=== PATIENT | female | born 1950 | race Caucasian/White ===

== ENCOUNTER → 2016-11-14 | Outpatient (CLI) | payer MEDICARE ==
--- NOTE | 2016-11-15 10:55 | ECHOF ---
Referral Reason:R01.1 undiagnosed cardiac murmur MEASUREMENTS -------- HEIGHT: 165.1 cm WEIGHT: 104.3 kg BP: 193/91 RVIDd: 2.5 cm (< 3.3) IVSd: 1.2 cm (0.6 - 1.1) LVIDd: 4.8 cm (3.9 - 5.3) LVPWd: 1.2 cm (0.6 - 1.1) IVSs: 1.7 cm LVIDs: 3.1 cm LVPWs: 1.9 cm LA Diam: 2.7 cm (2.7 - 3.8) LAESV Index (A-L): 27.01 ml/m Ao Diam: 3.1 cm (2.0 - 3.7) AV Cusp: 1.7 cm (1.5 - 2.6) LA Diam: 3.0 cm (2.7 - 3.8) MV EXCURSION: 15.271 mm (> 18.000) MV EF SLOPE: 90 mm/s (70 - 150) EPSS: 0.5 cm MV E Darrel: 0.80 m/s MV DecT: 222 ms MV A Darrel: 0.90 m/s MV E/A Ratio: 0.89 AV maxP.38 mmHg AV meanP.59 mmHg RAP: 5.00 mmHg RVSP: 28.38 mmHg FINDINGS -------- Sinus rhythm. This was a technically good study. Left ventricular wall thickness is normal. Overall left ventricular systolic function is normal with, an EF between 55 - 60 %. The right ventricle is normal in size. Normal LA size by volume 22+/-6 ml/m2. The right atrium is normal in size. Aortic valve is trileaflet and is mildly thickened. There is mild aortic stenosis present. Peak/mean gradient across the Aortic Valve is 28.38mmHg / 15.59mmHg. Mild mitral annular calcification present. Mild mitral regurgitation is present. Mild tricuspid regurgitation present. Right ventricular systolic pressure is normal at < 35 mmHg. Trace/mild (physiologic) pulmonic regurgitation. The aortic root size is normal. Normal inferior vena cava with normal inspiratory collapse consistent with estimated right atrial pressure of 5 mmHg. Echo free space may represent effusion or a pericardial fat pad. CONCLUSIONS -------- 1. Sinus rhythm. 2. Peak/mean gradient across the Aortic Valve is 28.38mmHg / 15.59mmHg. 3. Mild mitral annular calcification present. 4. Mild mitral regurgitation is present. 5. Mild tricuspid regurgitation present. 6. Right ventricular systolic pressure is normal at < 35 mmHg. 7. Trace/mild (physiologic) pulmonic regurgitation. 8. The aortic root size is normal. 9. Normal inferior vena cava with normal inspiratory collapse consistent with estimated right atrial pressure of 5 mmHg. 10. Echo free space may represent effusion or a pericardial fat pad. 11. This was a technically good study. 12. Left ventricular wall thickness is normal. 13. Overall left ventricular systolic function is normal with, an EF between 55 - 60 %. 14. The right ventricle is normal in size. 15. Normal LA size by volume 22+/-6 ml/m2. 16. The right atrium is normal in size. 17. Aortic valve is trileaflet and is mildly thickened. 18. There is mild aortic stenosis present. PLATFORM ARCHITECT: Ryann Hope RDCS
== END | disposition home or self-care (01) ==
LOC: RADECHMAIN 13:36
PROVIDERS: ATTEND Family Medicine
DX: I34.0 Nonrheumatic mitral (valve) insufficiency (principal); I07.1 Rheumatic tricuspid insufficiency; I35.0 Nonrheumatic aortic (valve) stenosis
CPT/HCPCS: 93306

== ENCOUNTER → 2017-09-27 | Outpatient (CLI) | payer MEDICARE ==
--- NOTE | 2017-10-01 09:00 | MM ---
Reason for exam: screening (asymptomatic). Last mammogram was performed 1 year and 4 months ago. History: Patient is postmenopausal and is nulliparous. Took estrogen for 5 years. Physical Findings: A clinical breast exam by your physician is recommended on an annual basis and results should be correlated with mammographic findings. MG Screening Mammo w CAD Bilateral CC and MLO view(s) were taken. Prior study comparison: June 11, 2016, bilateral MG screening mammo w CAD. June 09, 2015, bilateral MG screening mammo w CAD. There are scattered fibroglandular densities. No significant changes when compared with prior studies. ASSESSMENT: Negative, BI-RAD 1 RECOMMENDATION: Routine screening mammogram of both breasts in 1 year.
== END | disposition home or self-care (01) ==
LOC: RADMAMWWP 10:59
PROVIDERS: ATTEND Family Medicine
DX: Z12.31 Encounter for screening mammogram for malignant neoplasm of breast (principal)
CPT/HCPCS: 77067

== ENCOUNTER → 2018-10-07 | Outpatient (CLI) | payer MEDICARE ==
--- NOTE | 2018-10-11 09:49 | MM ---
Reason for exam: screening (asymptomatic). Last mammogram was performed 1 year ago. History: Patient is postmenopausal and is nulliparous. Took estrogen for 5 years. MG Screening Mammo w CAD Bilateral CC and MLO view(s) were taken. Prior study comparison: September 27, 2017, bilateral MG screening mammo w CAD. June 11, 2016, bilateral MG screening mammo w CAD. There are scattered fibroglandular densities. No discrete abnormality. No significant changes when compared with prior studies. ASSESSMENT: Negative, BI-RAD 1 RECOMMENDATION: Routine screening mammogram of both breasts in 1 year.
== END | disposition home or self-care (01) ==
LOC: RADMAMWWP 11:47
PROVIDERS: ATTEND Family Medicine
DX: Z12.31 Encounter for screening mammogram for malignant neoplasm of breast (principal)
CPT/HCPCS: 77067

== ENCOUNTER → 2019-11-09 | Outpatient (CLI) | payer MEDICARE ==
--- NOTE | 2019-11-10 10:26 | BD ---
EXAMINATION TYPE: Axial Bone Density DATE OF EXAM: 11/09/2019 COMPARISON: 2013 CLINICAL HISTORY: Z 78.0 Height: 5 FT 4 1/2 IN Weight: 224 FRAX RISK QUESTIONS: Alcohol (3 or more units per day): NO Family History (Parent hip fracture): NO Glucocorticoids (More than 3mos): NO (Ex: prednisone, prednisolone, methylprednisolone, dexamethasone, and hydrocortisone). History of Fracture in Adulthood: NO Secondary Osteoporosis: 1. Type 1 Diabetes: NO 2. Hyperthyroidism: NO 3. Menopause before 45: NO 4. Malnutrition: NO 5. Chronic liver disease: NO Rheumatoid Arthritis: NO Current Tobacco Use: YES RISK FACTORS HISTORY OF: Active: NO Postmenopausal woman: AGE 50 MEDICATIONS: Additional Medications: METFORMIN, , LISINOPRIL, OMEPRAZOLE, METOPROLOL, ECOTRIN, ATORVASTATIN, COQ10 Additional History: EXAM MEASUREMENTS: Bone mineral densitometry was performed using the [place] Thin brick System. Bone mineral density as measured about the Lumbar spine is: ----- L1-L4(G/cm2): 1.323 T Score Values are as follows: ----- L2: 0.8 ----- L3: 1.4 ----- L4: 2.4 ----- L1-L4: 1.2 Bone mineral density has: INCREASED 2.9 % since study of: 2013 Bone mineral density about the R hip (g/cm2): 0.988 Bone mineral density about the L hip (g/cm2): 0.893 T Score values are as follows: -----R Neck: -0.4 -----L Neck: -1.0 -----R Total: -0.3 -----L Total: -0.6 Bone mineral density has: DECREASED -1.4 % since study of: 2013 IMPRESSION: Normal (Values between +1 and -1 indicate normal bone mass). Values approach osteopenia. Consider rep eating this study in 5 years or sooner if there is some new clinical indication. NOTE: T-SCORE=SD OF THE YOUNG ADULT MEAN.
--- NOTE | 2019-11-10 11:33 | MM ---
Reason for exam: screening (asymptomatic). Last mammogram was performed 1 year and 1 month ago. History: Patient is postmenopausal and is nulliparous. Took estrogen for 5 years. Physical Findings: A clinical breast exam by your physician is recommended on an annual basis and results should be correlated with mammographic findings. MG Screening Mammo w CAD Bilateral CC and MLO view(s) were taken. Prior study comparison: October 07, 2018, bilateral MG screening mammo w CAD. September 27, 2017, bilateral MG screening mammo w CAD. There are scattered fibroglandular densities. No significant changes when compared with prior studies. ASSESSMENT: Negative, BI-RAD 1 RECOMMENDATION: Routine screening mammogram of both breasts in 1 year.
== END | disposition home or self-care (01) ==
LOC: RADMAMWWP 15:21
PROVIDERS: ATTEND Family Medicine
DX: Z12.31 Encounter for screening mammogram for malignant neoplasm of breast (principal); Z78.0 Asymptomatic menopausal state
CPT/HCPCS: 77067; 77080

== ENCOUNTER → 2020-05-31 | Outpatient (CLI) | payer MEDICARE ==
--- NOTE | 2020-05-31 17:41 | ECHOF ---
Referral Reason:I35.0 Nonrheumatic aortic (valve) stenosis MEASUREMENTS -------- HEIGHT: 165.1 cm WEIGHT: 99.8 kg BP: IVSd: 1.3 cm (0.6 - 1.1) LVIDd: 4.6 cm (3.9 - 5.3) LVPWd: 1.4 cm (0.6 - 1.1) EDV(Teich): 95 ml IVSs: 2.1 cm LVIDs: 2.8 cm LVPWs: 1.9 cm %IVS Thck: 62 % ESV(Teich): 30 ml EF(Teich): 68 % %FS: 38 % SV(Teich): 65 ml LVOT Diam: 1.4 cm RVIDd: 2.3 cm (< 3.3) IVC: 11.57 mm LALs A4C: 5.3 cm LAAs A4C: 18.4 cm LAESV A-L A4C: 55 ml LAESV MOD A4C: 52 ml LALs A2C: 5.6 cm LAAs A2C: 21.6 cm LAESV A-L A2C: 71 ml LAESV MOD A2C: 65 ml LAESV(A-L): 64 ml LAESV Index (A-L): 31.13 ml/m Ao Diam: 2.6 cm (2.0 - 3.7) LA Diam: 4.3 cm (2.7 - 3.8) AV Cusp: 1.3 cm (1.5 - 2.6) EPSS: 0.7 cm MV E Darrel: 1.12 m/s MV DecT: 175 ms MV Dec Sterling: 6.4 m/s MV A Darrel: 1.13 m/s MV E/A Ratio: 1.00 MV PHT: 51 ms MR Vmax: 5.43 m/s MR maxP.02 mmHg LVOT Vmax: 1.26 m/s LVOT maxP.33 mmHg AV Vmax: 3.04 m/s AV maxP.96 mmHg DESTINY Vmax, Pt: 0.7 cm AV Vmax: 3.25 m/s AV Vmean: 2.32 m/s AV maxP.29 mmHg AV meanP.30 mmHg AV Env.Ti: 318 ms AV VTI: 73.9 cm DESTINY Vmax, Pt: 0.6 cm TR Vmax: 1.27 m/s TR maxP.42 mmHg RAP: 5.00 mmHg RVSP: 11.42 mmHg MV EF SLOPE: 87.77 mm/s (70 - 150) MV EXCURSION: 13.19 mm (> 18.000) FINDINGS -------- This was a technically good study. The left ventricular size is normal. There is moderate concentric left ventricular hypertrophy. O verall left ventricular systolic function is normal with, an EF between 60 - 65 %. Normal LAP Grade 1 Diastolic Dysfunction. The right ventricle is normal in size. LA is midly dilated 29-33ml/m2. The right atrial size is normal. Interatrial and interventricular septum intact. Aortic valve is trileaflet and is moderately thickened. There is moderate aortic stenosis present. Peak/mean gradient across the Aortic Valve is 42.29mmHg / 23.30mmHg. The mitral valve is normal. The mitral valve leaflets are mildly thickened. Xhez-dr-ppgaisgz mitr al regurgitation is present. Mild tricuspid regurgitation present. Right ventricular systolic pressure is normal at < 35 mmHg. There is no evidence of pulmonary hypertension. There is no pulmonic regurgitation present. The aortic root size is normal. Normal inferior vena cava with normal inspiratory collapse consistent with estimated right atrial pre ssure of 5 mmHg. There is no pericardial effusion. CONCLUSIONS -------- 1. The left ventricular size is normal. 2. There is moderate concentric left ventricular hypertrophy. 3. Overall left ventricular systolic function is normal with, an EF between 60 - 65 %. 4. Normal LAP Grade 1 Diastolic Dysfunction. 5. LA is midly dilated 29-33ml/m2. 6. Aortic valve is trileaflet and is moderately thickened. 7. There is moderate aortic stenosis present. 8. Peak/mean gradient across the Aortic Valve is 42.29mmHg / 23.30mmHg. 9. The mitral valve leaflets are mildly thickened. 10. Lcwk-pl-fjkfldfv mitral regurgitation is present. 11. Right ventricular systolic pressure is normal at < 35 mmHg. 12. There is no pericardial effusion. METAL ROOM DENTAL TECHNICIAN: Tanja Mcnally [facility]
== END | disposition home or self-care (01) ==
LOC: RADECHMAIN 14:50
PROVIDERS: ATTEND Family Medicine
DX: I35.0 Nonrheumatic aortic (valve) stenosis (principal); I34.0 Nonrheumatic mitral (valve) insufficiency; I51.7 Cardiomegaly; I51.89 Other ill-defined heart diseases; I25.2 Old myocardial infarction
CPT/HCPCS: 93306

== ENCOUNTER → 2020-07-22 | Outpatient (CLI) | payer MEDICARE ==
[2020-07-22 15:31] LABS: Anisocytosis Slight; HCT 36.8 % (34.0-46.0); HGB 10.8 gm/dL (11.4-16.0); Hypochromasia Marked; MCHC 29.2 g/dL (31.0-37.0); MCV 75.5 fL (80.0-100.0); Mean Platelet Volume 7.5; Microcytosis Slight; Platelet Count 249 k/uL (150-450); RBC 4.88 m/uL (3.80-5.40); RDW 16.3 % (11.5-15.5); WBC 10.9 k/uL (3.8-10.6)
[2020-07-22 15:53] LABS: Potassium 4.2 mmol/L (3.5-5.1)
== END | disposition home or self-care (01) ==
LOC: LABPAT 15:13
PROVIDERS: ATTEND Internal Medicine Interventional Cardiology
DX: Z01.818 Encounter for other preprocedural examination (principal); I25.10 Atherosclerotic heart disease of native coronary artery without angina pectoris
CPT/HCPCS: 36415; 80051; 82565; 84520; 85027

== ENCOUNTER 2020-07-27 10:48 | Day surgery (SDC) | payer MEDICARE ==
[2020-07-25 12:59] VITALS: BMI 36.6
[~2020-07-27 10:48] MED LIST: ALPRAZolam 0.25 MG TAB PO PRN; ALPRAZolam 0.5 MG TAB PO PRN; ASPIRIN 325 MG TAB PO ONE; ATORVASTATIN 80 MG TAB PO ONE; NITROGLYCERIN SL TABS 0.4 MG TAB SUBLINGUAL PRN
[2020-07-27] MEDS ORDERED: SODIUM CHLORIDE 0.9% 1,000 ML IV ONE ×2 (11:15→17:25)
[2020-07-27 11:24] LABS: Glucose,Whole Blood 107 mg/dL (75-99)
[2020-07-27 11:39] VITALS: RESP 16; TEMP 98.2
[2020-07-27] MEDS ORDERED: fentaNYL (PF) 50 MCG/ML 2 ML AMP ONE (11:52)
[2020-07-27] MEDS ORDERED: LIDOCAINE 1% INJ 10MG/ML (20 ML MDV) ONE (11:52)
[2020-07-27] MEDS ORDERED: HEPARIN SODIUM 1,000 UN/ML (10ML VL) ONE (11:52)
[2020-07-27] MEDS ORDERED: VERAPAMIL 2.5 MG/ML 2 ML AMP ONE (11:52)
[2020-07-27] MEDS ORDERED: fentaNYL (PF) 50 MCG/ML 2 ML AMP IV ONE (12:05)
[2020-07-27] MEDS ORDERED: LIDOCAINE 1% INJ 10MG/ML (20 ML MDV) SQ ONE (12:07)
[2020-07-27] MEDS ORDERED: VERAPAMIL SYRINGE (5 MG/10 ML) INTRAARTER ONE (12:09)
[2020-07-27] MEDS ORDERED: MIDAZOLAM 2 MG/2 ML VIAL IV ONE (12:12)
[2020-07-27] MEDS ORDERED: HEPARIN SODIUM 1,000 UN/ML (10ML VL) IV ONE (12:14)
[2020-07-27] MEDS ORDERED: IOPAMIDOL-370 125ML BTL INJ ONE (12:29)
[2020-07-27] MEDS ORDERED: RX INFO: IV CONTRAST WAS GIVEN 1 EACH MISC MISCELLANE PRN (12:45)
[2020-07-27] MEDS ORDERED: SODIUM CHLORIDE 0.9% 1,000 ML IV SCH (12:45)
--- NOTE | 2020-07-27 15:02 | CC ---
CARDIAC CATHETERIZATION REPORT Mrs. Husain is a 70-year-old female with known history of coronary artery disease, status post stenting of the right coronary artery in 2010, history of hypertension, hyperlipidemia, diabetes mellitus and chronic tobacco use, who presented with an abnormal myocardial perfusion imaging with reversible ischemia in the inferolateral wall. She has not been very active physically because of those findings, recommendation made regarding cardiac catheterization. The procedures, risks, and complication were discussed with the patient who is in full understanding and agreement. PROCEDURE: Patient was brought to the floating labor gang supervisor in the fasting semi-sedated state after receiving fentanyl and Benadryl and achieving moderate conscious sedated state. Using Xylocaine anesthesia and Seldinger technique, a 6-Kyrgyz sheath was introduced in the right radial artery. Selective right and left coronary angiography were performed using 5- Kyrgyz 3.5 bend, right and left Jose Alberto catheter, multiple views of the coronary artery including hemiaxial views were obtained. Following that, the right Jose Alberto catheter was used to cross the aortic valve and left ventricular end-diastolic pressure was calculated. Following that, catheter and sheath were removed. Hemostasis was obtained with deployment of a TR band. There was no immediate complication. Patient was returned to her room in stable condition. Of note, the patient received 5000 units of intravenous heparin as well as intra-arterial verapamil. 1. FLUOROSCOPY: There was calcification involving all coronary arteries, predominantly the right coronary artery and left main artery. 2. LEFT MAIN: This is a large-sized vessel, bifurcating into left circumflex, left anterior descending artery. Left main artery has no evidence of high-grade stenosis. 3. LEFT ANTERIOR DESCENDING ARTERY: This is a large-sized vessel, reaching toward the apex with a wraparound apex segment, giving rise to small diagonal branch. The left anterior descending artery proximally after the first septal college director, has a 20% to 30% plaque. The rest of the vessel has no high-grade stenosis. 4. LEFT CIRCUMFLEX: This is a nondominant vessel, giving rise to a large obtuse marginal branch. The second and third obtuse marginal branch are small in caliber. The left circumflex at the takeoff of the first obtuse marginal branch, has a tubular lesion of 30%. The rest of the vessel has no high-grade stenosis. 5. RIGHT CORONARY ARTERY: This vessel is stented. The proximal mid segment has diffuse intimal restenoses with area stenosis up to 90%. After the takeoff of the acute marginal branch, the vessel is totally occluded with no antegrade flow. 6. COLLATERALS: There is collateral from the left coronary system toward the right PDA and PLV. 7. HEMODYNAMICS: The left ventricular end-diastolic pressure was 15-20 mmHg. There was a 15-20 mm gradient across the aortic valve. CONCLUSION: 1. Chronic occluded right coronary artery with collateral from the left coronary system. 2. A gradient of 15-20 mmHg across the aortic valve. 3. Mild disease in the LAD and left circumflex. RECOMMENDATION: In view of finding anatomy, I recommend continue medical therapy with aggressive risk modification that has been initiated. The importance of smoking cessation was discussed with the patient and her family and they are in full understanding and agreement. Duration of procedure is 21 minutes. MMJNL / IJN: [id number] /
--- NOTE | 2020-07-27 15:02 | LTR ---
DATE OF SERVICE: 07/27/2020 RE: Yenny Husain Dear Dr. Shaw; I had the pleasure to perform cardiac catheterization on Mrs. Husain at [facility] on July 27, 2020 and a full copy of the procedure note has been forwarded to you. In brief, she was found to have chronically occluded right coronary artery with mild disease in left circumflex and the left anterior descending artery and collateral to the distal right coronary artery from the left coronary system and based on those findings, I have recommended to continue medical therapy with aggressive coronary risk modifications being initiated and depending on her progress, further recommendation will be made. Thank you again for allowing me to participate in this patient's care. Please feel free to call for any questions. Sincerely yours, MD KELL Valadez / MARIA LUZ: [phone] /
[2020-07-27 17:05] VITALS: BP 182/72; PULSE 69
[2020-07-27] MEDS ORDERED: METOPROLOL TARTRATE 25 MG TAB PO SCH (21:00)
[2020-07-27] MEDS ORDERED: ATORVASTATIN 40 MG TAB PO SCH (21:00)
[2020-07-28] MEDS ORDERED: PANTOPRAZOLE 40 MG TABLET PO SCH (07:30)
[2020-07-28] MEDS ORDERED: lisinopriL 5 MG TAB PO SCH (09:00)
[2020-07-28] MEDS ORDERED: ASPIRIN 81 MG PO SCH (09:00)
[2020-07-28] MEDS ORDERED: SODIUM CHLORIDE 0.9% 1,000 ML in EMPTY BAG 1 BAG IV ONE (11:00)
== END 2020-07-27 17:33 | disposition home or self-care (01) ==
LOC: CATHCVL 10:48
PROVIDERS: ATTEND Internal Medicine Interventional Cardiology
DX: I25.10 Atherosclerotic heart disease of native coronary artery without angina pectoris (principal); I25.82 Chronic total occlusion of coronary artery; R94.39 Abnormal result of other cardiovascular function study; I35.0 Nonrheumatic aortic (valve) stenosis; I10 Essential (primary) hypertension; E78.2 Mixed hyperlipidemia; E11.9 Type 2 diabetes mellitus without complications; I25.2 Old myocardial infarction; F17.210 Nicotine dependence, cigarettes, uncomplicated; Z95.5 Presence of coronary angioplasty implant and graft; Z79.899 Other long term (current) drug therapy; Z79.82 Long term (current) use of aspirin; Z79.84 Long term (current) use of oral hypoglycemic drugs; Z82.49 Family history of ischemic heart disease and other diseases of the circulatory system
CPT/HCPCS: 93458; C1769 ×2; C1894; J2250; J2001; J3010; J1644; Q9967

== ENCOUNTER → 2020-11-21 | Outpatient (CLI) | payer MEDICARE ==
--- NOTE | 2020-11-22 11:20 | MM ---
Reason for exam: screening (asymptomatic). Last mammogram was performed 1 year ago. History: Patient is postmenopausal and is nulliparous. Took hormonal contraceptives for 12 years. Took estrogen for 5 years. Physical Findings: A clinical breast exam by your physician is recommended on an annual basis and results should be correlated with mammographic findings. MG 3D Screening Mammo W/Cad Bilateral CC and MLO view(s) were taken. Prior study comparison: November 09, 2019, bilateral MG screening mammo w CAD. October 07, 2018, bilateral MG screening mammo w CAD. There are scattered fibroglandular densities. There are benign appearing round calcifications bilaterally. Asymmetric breast tissue left breast breast, stable. There is no discrete abnormality. ASSESSMENT: Benign, BI-RAD 2 RECOMMENDATION: Routine screening mammogram of both breasts in 1 year.
== END | disposition home or self-care (01) ==
LOC: RADMAMWWP 10:22
PROVIDERS: ATTEND Family Medicine
DX: Z12.31 Encounter for screening mammogram for malignant neoplasm of breast (principal)
CPT/HCPCS: 77063; 77067

== ENCOUNTER 2021-06-09 15:37 | Observation (INO) | payer MEDICARE ==
[2021-06-09 17:16] LABS: INR 1.1 (<1.2); Prothrombin Time 11.2 sec (9.0-12.0)
[2021-06-09 17:19] LABS: Albumin 4.1 g/dL (3.5-5.0); Calcium 10.7 mg/dL (8.4-10.2); Potassium 4.1 mmol/L (3.5-5.1); Total Bilirubin 1.3 mg/dL (0.2-1.3); Total Protein 7.3 g/dL (6.3-8.2)
--- NOTE | 2021-06-09 18:14 | ED ---
Dizziness HPI - General Chief Complaint: Dizziness Stated Complaint: Dizziness,Nausea Source: patient Mode of arrival: wheelchair Limitations: no limitations - History of Present Illness Initial Comments: Patient is a 8-year-old female past medical history of diabetes, hypertension, hyperlipidemia presents emergency Department with generalized weakness, presyncope sensation and a headache. Patient denies any inciting events. No sick contacts with similar symptoms. States that they have been increasing in severity over the past 4 days. Admits headache. No fevers or chills. No neck stiffness. No head trauma. Denies chest pain or cough. Patient has had a decreased appetite with poor oral intake. The patient drove over to her daughter's house. Daughter was concerned because she was having some speech difficulties. She brought her up to the emergency room for reevaluation. I did evaluate the patient for her complaints and a workup was ordered. Correction through the patient's workup the daughter called me to the room states that she was having some left-sided facial droop. CT as well as CT angiography was ordered. Patient denies previous history of stroke. No other alleviating, precipitating factors - Related Data Home Medications Medication Instructions Recorded Confirmed Metoprolol Tartrate [Lopressor] 25 mg PO BID 07/29/15 06/09/21 Omeprazole [PriLOSEC] 20 mg PO [id number]-BRKFST 07/29/15 06/09/21 lisinopriL [Zestril] 10 mg PO DAILY 07/29/15 06/09/21 metFORMIN HCL [Glucophage] 500 mg PO BID 07/29/15 06/09/21 Aspirin [Adult Low Dose Aspirin EC] 81 mg PO DAILY 07/25/20 06/09/21 Atorvastatin [Lipitor] 40 mg PO HS 07/25/20 06/09/21 Multivit with Calcium,Iron,Min 1 tab PO DAILY 07/25/20 06/09/21 [Women's Multivitamin] Ubidecarenone [Co Q-10] 200 mg PO DAILY 07/25/20 06/09/21 Acetaminophen Tab [Tylenol Tab] 500 mg PO Q6H PRN 06/09/21 06/09/21 Ibuprofen [Motrin] 800 mg PO Q8H PRN 06/09/21 06/09/21 Allergies Allergy/AdvReac Type Severity Reaction Status Date / Time No Known Allergies Allergy Verified 06/09/21 20:55 Review of Systems ROS Statement: Those systems with pertinent positive or pertinent negative responses have been documented in the HPI. ROS Other: All systems not noted in ROS Statement are negative. Past Medical History Past Medical History: Diabetes Mellitus, Hyperlipidemia, Hypertension, Myocardial Infarction (CT) Last Myocardial Infarction Date:: 2010 History of Any Multi-Drug Resistant Organisms: None Reported Past Surgical History: Heart Catheterization With Stent, Tonsillectomy Past Anesthesia/Blood Transfusion Reactions: Motion Sickness Date of Last Stent Placement:: 2010 Past Psychological History: No Psychological Hx Reported Smoking Status: Current every day smoker Past Alcohol Use History: None Reported Past Drug Use History: None Reported - Past Family History Mother Family Medical History: Cancer Additional Family Medical History / Comment(s): LIVER Sister(s) Family Medical History: Cancer Additional Family Medical History / Comment(s): CERVICAL CANCER General Exam Limitations: no limitations Course Vital Signs 06/09/21 06/09/21 06/09/21 16:39 18:58 20:18 Temperature 97.9 F 97.4 F L Pulse Rate 56 L 65 75 Respiratory 20 18 18 Rate Blood Pressure 135/79 143/118 158/98 O2 Sat by Pulse 98 100 100 Oximetry 06/09/21 22:24 Temperature Pulse Rate 71 Respiratory 16 Rate Blood Pressure 155/82 O2 Sat by Pulse 100 Oximetry - Reevaluation(s) Reevaluation #1: 06/09/21 18:13 called to the room by daughter who states the patient is having facial droop. Upon my evaluation - symptoms completely resolved EKG Findings - EKG Comments: EKG Findings:: TEG demonstrates sinus bradycardia with a ventricular rate of 53. [place] interval 134. QRS 86. QTC of 459. No acute ST segment elevations or depressions Medical Decision Making - Medical Decision Making On arrival patient is placed into room 2. A thorough history and physical exam is performed. IV is established and laboratory studies were conducted. The patient does have acute neurologic change and therefore I did assess an NIH. He does have some difficulty with speech however it is extremely transient. NIH is 0 however it is sent over the patient for CT as well as CT angiography. Laboratory studies are reviewed. Creatinine is 1.7. Previously it was 1.[address] of the brain demonstrates senescent changes without acute intracranial process. CT angiography demonstrates large vessel occlusion, significant stenosis or aneurysm. Diaphragmatic hernia. Chest x-ray demonstrates large hiatal hernia. Results are discussed with the patient. I did recommend admission for the patient's transient speech difficulty. I did call and speak with Dr. Bledsoe who agreed to admit the patient. Patient was given a migraine cocktail and is currently awaiting a bed on the floor - Lab Data Result diagrams: 06/09/21 18:21 06/09/21 16:57 Lab Results 06/09/21 06/09/21 06/09/21 Range/Units 16:57 16:57 16:57 WBC (3.8-10.6) k/uL RBC (3.80-5.40) m/uL Hgb (11.4-16.0) gm/dL Hct (34.0-46.0) % MCV (80.0-100.0) fL MCH (25.0-35.0) pg MCHC (31.0-37.0) g/dL RDW (11.5-15.5) % Plt Count (150-450) k/uL MPV Neutrophils % % Lymphocytes % % Monocytes % % Eosinophils % % Basophils % % Neutrophils # (1.3-7.7) k/uL Lymphocytes # (1.0-4.8) k/uL Monocytes # (0-1.0) k/uL Eosinophils # (0-0.7) k/uL Basophils # (0-0.2) k/uL PT 11.2 (9.0-12.0) sec INR 1.1 (<1.2) Sodium 136 L (137-145) mmol/L Potassium 4.1 (3.5-5.1) mmol/L Chloride 107 (98-107) mmol/L Carbon Dioxide 16 L (22-30) mmol/L Anion Gap 13 mmol/L BUN 36 H (7-17) mg/dL Creatinine 1.72 H (0.52-1.04) mg/dL Est GFR (CKD-EPI)AfAm 34 (>60 ml/min/1.73 sqM) Est GFR (CKD-EPI)NonAf 30 (>60 ml/min/1.73 sqM) Glucose 124 H (74-99) mg/dL Calcium 10.7 H (8.4-10.2) mg/dL Total Bilirubin 1.3 (0.2-1.3) mg/dL AST 21 (14-36) U/L ALT 10 (4-34) U/L Alkaline Phosphatase 76 (38-126) U/L Troponin I <0.012 (0.000-0.034) ng/mL Total Protein 7.3 (6.3-8.2) g/dL Albumin 4.1 (3.5-5.0) g/dL Coronavirus (PCR) (Not Detectd) 06/09/21 06/09/21 Range/Units 18:21 20:22 WBC 10.0 (3.8-10.6) k/uL RBC 5.37 (3.80-5.40) m/uL Hgb 16.3 H (11.4-16.0) gm/dL Hct 48.5 H (34.0-46.0) % MCV 90.4 (80.0-100.0) fL MCH 30.4 (25.0-35.0) pg MCHC 33.7 (31.0-37.0) g/dL RDW 12.7 (11.5-15.5) % Plt Count 212 (150-450) k/uL MPV 8.2 Neutrophils % 78 % Lymphocytes % 16 % Monocytes % 4 % Eosinophils % 1 % Basophils % 0 % Neutrophils # 7.8 H (1.3-7.7) k/uL Lymphocytes # 1.6 (1.0-4.8) k/uL Monocytes # 0.4 (0-1.0) k/uL Eosinophils # 0.1 (0-0.7) k/uL Basophils # 0.0 (0-0.2) k/uL PT (9.0-12.0) sec INR (<1.2) Sodium (137-145) mmol/L Potassium (3.5-5.1) mmol/L Chloride (98-107) mmol/L Carbon Dioxide (22-30) mmol/L Anion Gap mmol/L BUN (7-17) mg/dL Creatinine (0.52-1.04) mg/dL Est GFR (CKD-EPI)AfAm (>60 ml/min/1.73 sqM) Est GFR (CKD-EPI)NonAf (>60 ml/min/1.73 sqM) Glucose (74-99) mg/dL Calcium (8.4-10.2) mg/dL Total Bilirubin (0.2-1.3) mg/dL AST (14-36) U/L ALT (4-34) U/L Alkaline Phosphatase (38-126) U/L Troponin I (0.000-0.034) ng/mL Total Protein (6.3-8.2) g/dL Albumin (3.5-5.0) g/dL Coronavirus (PCR) Not Detected (Not Detectd) Disposition Clinical Impression: Acute encephalopathy, Expressive aphasia, Cephalgia, CRISTIAN (acute kidney injury) Disposition: ADMITTED IP TO THIS HOSP Condition: Stable Is patient prescribed a controlled substance at d/c from ED?: No Decision to Admit Reason: Admit from EC Decision Date: 06/09/21 Decision Time: 20:30
--- NOTE | 2021-06-09 18:15 | XR ---
EXAMINATION TYPE: XR chest 2V DATE OF EXAM: 06/09/2021 COMPARISON: NONE HISTORY: Dizziness nausea. TECHNIQUE: Frontal and lateral views of the chest are obtained. FINDINGS: Cardiomediastinal silhouette and pulmonary vasculature is within normal limits. There is a moderate hiatal hernia. There are some strandy opacities in the left is no effusion, consolidation o r pneumothorax. The osseous structures are intact. IMPRESSION: 1. Subsegmental atelectasis in the left midlung. 2. There is large hiatal hernia.
[2021-06-09] MEDS ORDERED: SODIUM CHLORIDE 0.9% 1,000 ML IV ONE (18:27)
[2021-06-09 18:31] LABS: Basophils % (A) 0 %; Eosinophils # (A) 0.1 k/uL (0-0.7); Eosinophils % (A) 1 %; HCT 48.5 % (34.0-46.0); HGB 16.3 gm/dL (11.4-16.0); Lymphocytes # (A) 1.6 k/uL (1.0-4.8); Lymphocytes % (A) 16 %; MCH 30.4 pg (25.0-35.0); MCHC 33.7 g/dL (31.0-37.0); MCV 90.4 fL (80.0-100.0); Mean Platelet Volume 8.2; Monocytes # (A) 0.4 k/uL (0-1.0); Monocytes % (A) 4 %; Neutrophils # (A) 7.8 k/uL (1.3-7.7); Neutrophils % (A) 78 %; Platelet Count 212 k/uL (150-450); RBC 5.37 m/uL (3.80-5.40); RDW 12.7 % (11.5-15.5)
--- NOTE | 2021-06-09 19:05 | CT ---
EXAMINATION TYPE: CT brain wo con DATE OF EXAM: 06/09/2021 COMPARISON: None HISTORY: Weakness and facial droop CT DLP: 1220.8 mGycm Automated exposure control for dose reduction was used. FINDINGS: Frontal lobe predominant cerebral volume retraction. No acute intracranial hemorrhage, large vessel t erritory infarct, mass, mass effect or midline shift. No hydrocephalus or extra-axial fluid collectio n. Patchy hypodensity of the periventricular white matter is nonspecific. Pedicles and and sulci are concordant. The sotelo-white distinction is maintained. No osseous. The paranasal sinuses and air cells are well-developed and pneumatized. The globes are aphakic. IMPRESSION: SENESCENT CHANGES WITHOUT AN ACUTE INTRACRANIAL PROCESS.
--- NOTE | 2021-06-09 19:43 | CT ---
EXAMINATION TYPE: CT angio head neck DATE OF EXAM: 06/09/2021 HISTORY: Weakness and facial droop COMPARISON: None CT DLP: 638.9 mGycm. Automated Exposure Control for Dose Reduction was Utilized. TECHNIQUE: CTA scan of the neck is performed with IV Contrast, patient injected with 65 mL of Isovue 370, axial images are obtained, coronal and sagittal reformatted images are reviewed. 3D reconstruct ed images are created on an independent workstation and reviewed. FINDINGS: Carotid/Vascular Structures: Classic arch anatomy. Mild calcification at the carotid bifurcations oth erwise the cervical carotid are within normal limits. The bilateral vertebral arteries markable. The cranial ICAs, vertebral arteries and the ho-chunk of [place] arteries are unremarkable. No aneurysm Other: Emphysematous changes. Partially visualized diaphragmatic hernia on the right. Degenerative ch anges of the spine. IMPRESSION: 1. No large vessel occlusion, hemodynamically significant stenosis or aneurysm matter neck. 2. Partially visualized large right diaphragmatic hernia. NASCET criteria was used in interpretation of this exam?
[2021-06-09] MEDS ORDERED: METOCLOPRAMIDE 5 MG/ML 2 ML VIAL IVP STA (20:05)
[2021-06-09] MEDS ORDERED: diphenhydrAMINE 50 MG/ML 1 ML VIAL IVP STA (20:05)
[2021-06-09] MEDS ORDERED: KETOROLAC 15 MG/ML 1 ML VIAL IVP STA (20:05)
[2021-06-09] MEDS ORDERED: SODIUM CHLORIDE 0.9% 1,000 ML IV STA (20:05)
[2021-06-09] MEDS ORDERED: DEXAMETHASONE SOD PHOSPHATE 10 MG/ML 1 ML VIAL IV STA (20:06)
[2021-06-09] MEDS ORDERED: MAGNESIUM SULFATE-D5W PMX 1 GM in DEXTROSE/WATER 1 100ML.BAG IVPB ONE (20:06)
[2021-06-09] MEDS ORDERED: NALOXONE 0.4 MG/ML 1 ML VIAL IV PRN (20:30)
[2021-06-09 23:36] LABS: Appearance,Urine Clear (Clear); Bilirubin,Urine Negative (Negative); Blood,Urine Negative (Negative); Color,Urine Yellow; Glucose,Urine (UA) Negative (Negative); Ketones,Urine 1+ (Negative); Leukocyte Esterase,Urine Negative (Negative); Nitrite,Urine Negative (Negative); PH, Urine 5.5 (5.0-8.0); Protein,Urine Trace (Negative); Urobilinogen,Urine <2.0 mg/dL (<2.0)
[2021-06-10] MEDS ORDERED: ACETAMINOPHEN TAB 500 MG TAB PO PRN (00:02)
[2021-06-10] MEDS: ATORVASTATIN 40 MG TAB PO SCH ×2 (01:09→21:10)
[2021-06-10] MEDS: METOPROLOL TARTRATE 25 MG TAB PO SCH ×3 (01:09→21:10)
[2021-06-10 06:02] LABS: Glucose,Whole Blood 139 mg/dL (75-99)
[2021-06-10] MEDS ORDERED: NON FORMULARY DRUG (Ubidecarenone [Co Q-10] 100 MG Capsule) PO SCH (09:00)
[2021-06-10] MEDS: MULTIVITAMINS, THERA 1 EACH TAB PO SCH (09:04)
[2021-06-10] MEDS: ASPIRIN 81 MG PO SCH (09:04)
[2021-06-10] MEDS: PANTOPRAZOLE 40 MG TABLET PO SCH (09:04)
[2021-06-10 11:05] LABS: Basophils # (A) 0.01 X 10*3/uL (0.00-0.10); Basophils % (A) 0.2 %; Eosinophils # (A) 0 X 10*3/uL (0.04-0.35); Eosinophils % (A) 0 %; HCT 43.5 % (37.2-46.3); HGB 14.3 g/dL (12.0-15.0); Lymphocytes # (A) 0.91 X 10*3/uL (0.90-5.00); Lymphocytes % (A) 16.5 %; MCHC 32.9 g/dL (32.0-37.0); MCV 88.2 fL (80.0-97.0); Mean Platelet Volume 11.5 fL (9.5-12.2); Monocytes # (A) 0.08 X 10*3/uL (0.20-1.00); Monocytes % (A) 1.5 %; Neutrophils # (A) 4.49 X 10*3/uL (1.80-7.70); Neutrophils % (A) 81.4 %; Platelet Count 198 X 10*3/uL (140-440); RBC 4.93 X 10*6/uL (4.10-5.20); WBC 5.51 X 10*3/uL (4.50-10.00)
[2021-06-10 11:57] LABS: African American GFR (CKD) 58.9 (60.0-200.0); Anion Gap 9.4 mmol/L (4.00-12.00); BUN/Creat Ratio 25.45 Ratio (12.00-20.00); Calcium 9.6 mg/dL (8.7-10.3); Carbon Dioxide 20.6 mmol/L (21.6-31.8); Non-African American GFR(CKD) 50.8 (60.0-200.0); Potassium 4.1 mmol/L (3.5-5.5)
[2021-06-10 12:10] LABS: ALT 9 U/L (4-34); AST 17 U/L (14-36); African American GFR (CKD) 63 (>60 ml/min/1.73 sqM); Albumin 3.7 g/dL (3.5-5.0); Albumin/Globulin Ratio 1.2; Alkaline Phosphatase 61 U/L (38-126); Anion Gap 8 mmol/L; Blood Urea Nitrogen 27 mg/dL (7-17); Calcium 9.7 mg/dL (8.4-10.2); Carbon Dioxide 18 mmol/L (22-30); Chloride 110 mmol/L (98-107); Glucose 126 mg/dL (74-99); Non-African American GFR(CKD) 55 (>60 ml/min/1.73 sqM); Potassium 4.1 mmol/L (3.5-5.1); Sodium 136 mmol/L (137-145); Total Bilirubin 0.8 mg/dL (0.2-1.3); Total Protein 6.7 g/dL (6.3-8.2)
[2021-06-10 12:18] LABS: Glucose,Whole Blood 110 mg/dL (75-99)
--- NOTE | 2021-06-10 13:09 | P.HPIM ---
History of Present Illness H&P Date: 06/10/21 Chief Complaint: TIA versus CVA Mrs. Menezes is a 71-year-old woman known to Dr. Shaw with a past medical history of diabetes hypertension hyperlipidemia presented to the hospital with generalized weakness presyncopal sensation and headache patient denies inciting events no recent illness or sick contacts have similar symptoms. Patient states that the symptoms have been increasing in severity over the last 4 days admits headache no fever no chills no neck stiffness no head trauma no chest pain no crease decreased appetite or decreased oral intake. Patient states that she drove over to her friend's house she was having episodes of what sounds like expressive aphasia with a facial droop and her friend insisted on bringing her to the hospital CT as well as CT angiography was ordered post- studies demonstrated very little evidence of pathology. Aguilar through the patient's workup the friend called the emergency room physician to the room and at that time. The patient was having witnessed left-sided facial droop. Decision was made to admit patient to the hospital for workup for CVA\TIA Review of Systems Constitutional: Reports as per HPI Ears, nose, mouth and throat: Reports as per HPI (No expressive aphasia no facial droop at this time) Breasts: bilateral: as per HPI Cardiovascular: Reports high blood pressure Respiratory: Reports as per HPI Gastrointestinal: Reports as per HPI Genitourinary: Reports as per HPI Menstruation: Reports postmenopausal Musculoskeletal: Reports as per HPI Integumentary: Reports as per HPI (Expressive aphasia resolved, left facial droop resolved mild left sided slowing of movement perceived on examination) Neurological: Reports aphasia, Reports ataxia (All neurologic symptoms resolved at this time) Psychiatric: Reports as per HPI Endocrine: Reports high blood sugars (Have been well controlled at this time), Reports polydipsia, Reports polyphagia, Reports polyuria Past Medical History Past Medical History: Diabetes Mellitus, Hyperlipidemia, Hypertension, Myocardial Infarction ([place]) Last Myocardial Infarction Date:: 2010 History of Any Multi-Drug Resistant Organisms: None Reported Past Surgical History: Heart Catheterization With Stent, Tonsillectomy Past Anesthesia/Blood Transfusion Reactions: Motion Sickness Date of Last Stent Placement:: 2010 Past Psychological History: No Psychological Hx Reported Smoking Status: Current every day smoker Past Alcohol Use History: None Reported Past Drug Use History: None Reported - Past Family History Mother Family Medical History: Cancer Additional Family Medical History / Comment(s): LIVER Sister(s) Family Medical History: Cancer Additional Family Medical History / Comment(s): CERVICAL CANCER Medications and Allergies Home Medications Medication Instructions Recorded Confirmed Type Metoprolol Tartrate [Lopressor] 25 mg PO BID 07/29/15 06/09/21 History Omeprazole [PriLOSEC] 20 mg PO AC-BRKFST 07/29/15 06/09/21 History lisinopriL [Zestril] 10 mg PO DAILY 07/29/15 06/09/21 History metFORMIN HCL [Glucophage] 500 mg PO BID 07/29/15 06/09/21 History Aspirin [Adult Low Dose Aspirin EC] 81 mg PO DAILY 07/25/20 06/09/21 History Atorvastatin [Lipitor] 40 mg PO HS 07/25/20 06/09/21 History Multivit with Calcium,Iron,Min 1 tab PO DAILY 07/25/20 06/09/21 History [Women's Multivitamin] Ubidecarenone [Co Q-10] 200 mg PO DAILY 07/25/20 06/09/21 History Acetaminophen Tab [Tylenol Tab] 500 mg PO Q6H PRN 06/09/21 06/09/21 History Ibuprofen [Motrin] 800 mg PO Q8H PRN 06/09/21 06/09/21 History Allergies Allergy/AdvReac Type Severity Reaction Status Date / Time No Known Allergies Allergy Verified 06/09/21 20:55 Physical Exam Osteopathic Statement: *. No significant issues noted on an osteopathic structural exam other than those noted in the History and Physical/Consult. Vitals: Vital Signs Temp Pulse Resp BP Pulse Ox 06/10/21 06:58 69 18 137/69 97 06/10/21 05:30 72 18 140/71 98 06/10/21 01:09 78 16 140/71 95 06/09/21 22:24 71 16 155/82 100 06/09/21 20:18 97.4 F L 75 18 158/98 100 06/09/21 18:58 65 18 143/118 100 06/09/21 16:39 97.9 F 56 L 20 135/79 98 Intake and Output 06/09/21 06/10/21 06/10/21 22:59 06:59 14:59 Other: Weight 90.718 kg 90.718 kg General: [Patient awake, alert and oriented times 3. Patient in no acute distress.] Patient is engaging no generalized neurologic symptoms at this time HEENT: [PERRL. EOMI. No pharyngeal erythema or exudate.] Neck: [No adenopathy.] Cardiac: [Heart regular in rate and rhythm. No S3. No S4. No clicks, rubs. No murmur.] Lungs: [Clear to auscultation bilaterally.] Abdomen: [No mass. No organomegaly. Bowel sounds presnt and normoactive in all 4 quadrants. Noted obesity Extremes: [No edema no cyanosis no claudication normal pulses] : Normal female genitalia Musculoskeletal: [No joint erythema, edema or tenderness.] Skin: [No rash.] Neurologic: [No lateralizing deficits. CN II - XII grossly intact.] Lymphatic: [No adenopathy.] Results CBC & Chem 7: 06/10/21 07:31 06/10/21 07:31 Labs: Abnormal Lab Results - Last 24 Hours (Table) 06/09/21 06/09/21 06/09/21 Range/Units 16:57 18:21 22:23 Hgb 16.3 H (11.4-16.0) gm/dL Hct 48.5 H (34.0-46.0) % Neutrophils # 7.8 H (1.3-7.7) k/uL Monocytes # (0.20-1.00) X 10*3/uL Eosinophils # (0.04-0.35) X 10*3/uL Sodium 136 L (137-145) mmol/L Chloride (96-109) mmol/L Carbon Dioxide 16 L (22-30) mmol/L BUN 36 H (7-17) mg/dL Creatinine 1.72 H (0.52-1.04) mg/dL Est GFR (CKD-EPI)AfAm (60.0-200.0) Est GFR (CKD-EPI)NonAf (60.0-200.0) BUN/Creatinine Ratio (12.00-20.00) Ratio Glucose 124 H (74-99) mg/dL POC Glucose (mg/dL) (75-99) mg/dL Calcium 10.7 H (8.4-10.2) mg/dL Ur Specific [place] 1.050 H (1.001-1.035) Urine Protein Trace H (Negative) Urine Ketones 1+ H (Negative) 06/10/21 06/10/21 06/10/21 Range/Units 06:01 07:31 07:31 Hgb (11.4-16.0) gm/dL Hct (34.0-46.0) % Neutrophils # (1.3-7.7) k/uL Monocytes # 0.08 L (0.20-1.00) X 10*3/uL Eosinophils # 0 L (0.04-0.35) X 10*3/uL Sodium (137-145) mmol/L Chloride 110 H (96-109) mmol/L Carbon Dioxide 20.6 L (22-30) mmol/L BUN 28.0 H (7-17) mg/dL Creatinine (0.52-1.04) mg/dL Est GFR (CKD-EPI)AfAm 58.9 L (60.0-200.0) Est GFR (CKD-EPI)NonAf 50.8 L (60.0-200.0) BUN/Creatinine Ratio 25.45 H (12.00-20.00) Ratio Glucose 119 H (74-99) mg/dL POC Glucose (mg/dL) 139 H (75-99) mg/dL Calcium (8.4-10.2) mg/dL Ur Specific [place] (1.001-1.035) Urine Protein (Negative) Urine Ketones (Negative) 06/10/21 06/10/21 Range/Units 07:31 12:16 Hgb (11.4-16.0) gm/dL Hct (34.0-46.0) % Neutrophils # (1.3-7.7) k/uL Monocytes # (0.20-1.00) X 10*3/uL Eosinophils # (0.04-0.35) X 10*3/uL Sodium 136 L (137-145) mmol/L Chloride 110 H (96-109) mmol/L Carbon Dioxide 18 L (22-30) mmol/L BUN 27 H (7-17) mg/dL Creatinine (0.52-1.04) mg/dL Est GFR (CKD-EPI)AfAm (60.0-200.0) Est GFR (CKD-EPI)NonAf (60.0-200.0) BUN/Creatinine Ratio (12.00-20.00) Ratio Glucose 126 H (74-99) mg/dL POC Glucose (mg/dL) 110 H (75-99) mg/dL Calcium (8.4-10.2) mg/dL Ur Specific [place] (1.001-1.035) Urine Protein (Negative) Urine Ketones (Negative) Thrombosis Risk Factor Assmnt - Choose All That Apply Each Risk Factor Represents 2 Points: Age 61-74 years Thrombosis Risk Factor Assessment Total Risk Factor Score: 2 Thrombosis Risk Factor Assessment Level: Low Risk Assessment and Plan (1) CRISTIAN (acute kidney injury) Current Visit: Yes Status: Acute Code(s): N17.9 - ACUTE KIDNEY FAILURE, UNSPECIFIED SNOMED Code(s): 39984506 (2) Acute encephalopathy Current Visit: Yes Status: Acute Code(s): G93.40 - ENCEPHALOPATHY, UNSPECIFIED SNOMED Code(s): 43297887 (3) Cephalgia Current Visit: Yes Status: Acute Code(s): R51.9 - HEADACHE, UNSPECIFIED SNOMED Code(s): 87848816 (4) Expressive aphasia Current Visit: Yes Status: Acute Code(s): R47.01 - APHASIA SNOMED Code(s): 678034413 Plan: TIA versus CVA No evidence of acute CVA on CT angiogram or CT brain MRI pending Neurology evaluation pending History of angioplasty with stent placement 2 drug-eluting stents noted Creatinine was 1.7 on admission lisinopril was stopped current renal function resolved BUN still elevated will repeat kidney function tomorrow May be able to resume lisinopril at 5 mg daily 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 Branden Rogel MD cardiology regarding possible addition of platelet inhibitor to protect against further neurologic symptomatology Time with Patient: Greater than 30
--- NOTE | 2021-06-10 14:44 | MR ---
EXAMINATION TYPE: MR brain wo con DATE OF EXAM: 06/10/2021 COMPARISON: None HISTORY: Weakness and facial droop. Diffusion images show no evidence of an acute infarct. There is patchy white matter increased signal on the T2 and FLAIR images around the lateral ventricles with coalescent signal measuring up to 1 cm in thickness. There is some patchy increased signal in the central berkley. There is no mass effect nor midline shift. There is no sign of intracranial hemorrhage. There is diffuse cerebral atrophy. IMPRESSION: Cerebral atrophy. Diffuse white matter changes around the ventricles are nonspecific and could relate to microvascular ischemia or demyelinating disease. There is some involvement also of the berkley. No a cute abnormality.
--- NOTE | 2021-06-10 16:23 | P.CNNES ---
History of Present Illness Consult date: 06/10/21 Requesting physician: Maranda Osman Reason for Consult: Acute expressive aphasia-resolved, acute cephalalgia History of Present Illness: This is a Tele-neurology consultation performed today on 06/10/2021. Patient is a 71-year-old female, with history of diabetes, hypertension, hyperlipidemia who came to the hospital yesterday at 4:39 PM after she had a syncopal spell. Patient underwent dental procedure on 06/01/2021 for a couple impacted teeth. On 06/05/2021, patient woke up with headache, which involves bitemporal region, which kept on getting worse. The next day on Saturday she noticed that she was unsteady, difficult to sit stand or get out of bed, as if "everything was uneasy". She felt will fall face forward. She did not fall. She also noticed that she was slurring her words and one of her friend noticed that her jaw is going up to the side. As the symptoms persisted, patient decided to come to the ER. Denies any numbness or tingling or focal weakness otherwise. Denies any history of migraines in the past. No history of headaches. No trauma. Vital signs on arrival blood pressure 135/79, pulse rate 56, temperature 97.9. Patient's blood tests showed normal CBC PT and INR. Sodium 136 potassium 4.1. BUN 36, creatinine 1.72. Hepatic panel is normal. Calcium is elevated at 10.7/10.2 UA is negative, ludwig virus PCR negative. Patient's computed tomography scan of the head showed senescent changes without acute intracranial process. CTA of head and neck showed no large vessel occlusion, hemodynamically significant stenosis or aneurysm head or neck. Partially visualized large right diaphragmatic hernia. EKG shows sinus bradycardia, possible left atrial enlargement. Chest x-ray showed subsegmental atelectasis in the left mid lung. There is a large hiatal hernia. Patient had a previous 2-D echo on 05/31/2020 which showed normal left ventricular size, moderate concentric LVH, EF is between 60-65%. Left atrium is mildly dilated. Patient has history of diabetes for 15 years which is controlled. She claims her hemoglobin A1c is always less than 7. She has hypertension. She started smoking since age 16. When she was in college, she started smoking one pack per day and has smoked 1 pack per day until 2 years ago when she cutback to half pack per day. She denies any alcohol, or marijuana use. Patient's home medications include aspirin 81 mg, CoQ10, Lipitor 40 mg, lisinopril 10 mg, metformin 500 mg twice a day, metoprolol 25 mg twice a day and omeprazole. Patient states she has quit taking her aspirin 5 days prior to dental procedure. She started back on the aspirin after the procedure. Patient states her headache had gone away morning. Review of Systems Denies any chest pain shortness of breath, wheezing or cough. Denies abdominal pain. No nausea vomiting diarrhea. No fever or chills. No double vision or loss of vision. No hoarseness, sore throat, dysphagia. Patient had right cataract surgery. All other review of systems reviewed and noncontributory. Past Medical History Past Medical History: Diabetes Mellitus, Hyperlipidemia, Hypertension, Myocardial Infarction ([place]) Last Myocardial Infarction Date:: 2010 History of Any Multi-Drug Resistant Organisms: None Reported Past Surgical History: Heart Catheterization With Stent, Tonsillectomy Past Anesthesia/Blood Transfusion Reactions: Motion Sickness Date of Last Stent Placement:: 2010 Past Psychological History: No Psychological Hx Reported Smoking Status: Current every day smoker Past Alcohol Use History: None Reported Past Drug Use History: None Reported - Past Family History Mother Family Medical History: Cancer Additional Family Medical History / Comment(s): LIVER Sister(s) Family Medical History: Cancer Additional Family Medical History / Comment(s): CERVICAL CANCER Medications and Allergies Home Medications Medication Instructions Recorded Confirmed Type Metoprolol Tartrate [Lopressor] 25 mg PO BID 07/29/15 06/09/21 History Omeprazole [PriLOSEC] 20 mg PO AC-BRKFST 07/29/15 06/09/21 History lisinopriL [Zestril] 10 mg PO DAILY 07/29/15 06/09/21 History metFORMIN HCL [Glucophage] 500 mg PO BID 07/29/15 06/09/21 History Aspirin [Adult Low Dose Aspirin EC] 81 mg PO DAILY 07/25/20 06/09/21 History Atorvastatin [Lipitor] 40 mg PO HS 07/25/20 06/09/21 History Multivit with Calcium,Iron,Min 1 tab PO DAILY 07/25/20 06/09/21 History [Women's Multivitamin] Ubidecarenone [Co Q-10] 200 mg PO DAILY 07/25/20 06/09/21 History Acetaminophen Tab [Tylenol Tab] 500 mg PO Q6H PRN 06/09/21 06/09/21 History Ibuprofen [Motrin] 800 mg PO Q8H PRN 06/09/21 06/09/21 History Allergies Allergy/AdvReac Type Severity Reaction Status Date / Time No Known Allergies Allergy Verified 06/09/21 20:55 Physical Examination - Vital Signs Vital Signs: Vital Signs Temp Pulse Resp BP Pulse Ox 06/10/21 06:58 69 18 137/69 97 06/10/21 05:30 72 18 140/71 98 06/10/21 01:09 78 16 140/71 95 06/09/21 22:24 71 16 155/82 100 06/09/21 20:18 97.4 F L 75 18 158/98 100 06/09/21 18:58 65 18 143/118 100 06/09/21 16:39 97.9 F 56 L 20 135/79 98 Intake and Output 06/09/21 06/10/21 06/10/21 22:59 06:59 14:59 Other: Weight 90.718 kg 90.718 kg Patient is an elderly female, in no acute distress. Patient is alert awake oriented to time place and person. Speech and language functions are normal. Attention, concentration and fund of knowledge is adequate. On cranial examination, her right pupil is slightly larger than the left. Both are round and reacting. Her right pupil appears surgical. Her visual sena are full on confrontation, extraocular muscles are intact with no nystagmus. Face is symmetric, tongue protrudes to the midline. Palatal elevation and sensation normal, hearing and shoulder shrug normal, facial sensation normal. Shoulder shrug normal. On muscle strength testing, there is no pronator drift and the strength is normal in arms and legs distally and proximally, except hip flexion which is slightly weak 4+ bilaterally. Deep tendon reflexes are 1+ to 2+ in the arms and legs. Plantars withdrawal. Sensory to touch is equal with no neglect. Cerebellar function showed no ataxia for [id number] testing. No dysdiadochokinesia. Tone and bulk of muscles normal. Gait, patient walks slightly wide base. Appears otherwise steady. On general examination, there is no carotid bruit or murmur, S1-S2 audible. Abdomen is soft nontender. Chest is clear. Peripheral pulses are present. No edema. Results - Laboratory Findings CBC and BMP: 06/10/21 07:31 06/10/21 07:31 Abnormal Lab Findings: Abnormal Labs 06/09/21 06/09/21 06/09/21 16:57 18:21 22:23 Hgb 16.3 H Hct 48.5 H Neutrophils # 7.8 H Sodium 136 L Carbon Dioxide 16 L BUN 36 H Creatinine 1.72 H Glucose 124 H POC Glucose (mg/dL) Calcium 10.7 H Ur Specific [place] 1.050 H Urine Protein Trace H Urine Ketones 1+ H 06/10/21 06:01 Hgb Hct Neutrophils # Sodium Carbon Dioxide BUN Creatinine Glucose POC Glucose (mg/dL) 139 H Calcium Ur Specific [place] Urine Protein Urine Ketones Assessment and Plan Assessment: * Possible TIA, rule out CVA. Patient has presented with unsteadiness, slurring and cephalgia, which occurred few days after her dental procedure. Patient has stopped taking aspirin for 5 days prior to the procedure. Her cephalgia and slurring have resolved. Neurological examination is nonfocal. * Hypertension * Diabetes * Chronic tobacco use * Obesity * Hypercalcemia Plan: * MRI of brain, rule out CVA. * 2-D echo to rule out embolic source. * CTA of head and neck showed no significant stenosis. * Strongly recommend complete tobacco cessation. * Continue aspirin 81 mg daily. Continue Lipitor 40 mg. * Hemoglobin A1c 5.8 * Check lipid panel. * Continue telemetry monitoring. * Repeat calcium level. * Neurology will follow.
--- NOTE | 2021-06-10 16:57 | ECHOF ---
Referral Reason:Possible TIA MEASUREMENTS -------- HEIGHT: 165.1 cm WEIGHT: 90.7 kg BP: RVIDd: 1.4 cm (< 3.3) IVSd: 1.5 cm (0.6 - 1.1) LVIDd: 3.9 cm (3.9 - 5.3) LVPWd: 1.5 cm (0.6 - 1.1) IVSs: 2.1 cm LVIDs: 2.5 cm LVPWs: 2.6 cm LAESV Index (A-L): 21.83 ml/m Ao Diam: 3.0 cm (2.0 - 3.7) AV Cusp: 1.1 cm (1.5 - 2.6) LA Diam: 3.1 cm (2.7 - 3.8) MV EXCURSION: 19.089 mm (> 18.000) MV EF SLOPE: 97 mm/s (70 - 150) EPSS: 0.5 cm MV E Darrel: 0.85 m/s MV DecT: 277 ms MV A Darrel: 0.80 m/s MV E/A Ratio: 1.05 AV maxP.82 mmHg AV meanP.72 mmHg RAP: 5.00 mmHg RVSP: 12.70 mmHg FINDINGS -------- This was a technically good study. The left ventricular size is normal. There is moderate concentric left ventricular hypertrophy. O verall left ventricular systolic function is normal with, an EF between 55 - 60 %. Normal LAP. Grad e 1 Diastolic Dysfunction. The right ventricle is normal in size. The left atrial size is normal. Normal LA size by volume 22+/-6 ml/m2. The right atrial size is normal. Aortic valve is trileaflet and is severely thickened. There is moderate aortic stenosis present. Peak/mean gradient across the Aortic Valve is 42.82mmHg / 26.72mmHg. The mitral valve is normal. Mild mitral regurgitation is present. The tricuspid valve appears structurally normal. Mild tricuspid regurgitation present. Right vent ricular systolic pressure is normal at < 35 mmHg. There is no pulmonic regurgitation present. The aortic root size is normal. Normal inferior vena cava with normal inspiratory collapse consistent with estimated right atrial pre ssure of 5 mmHg. There is no pericardial effusion. CONCLUSIONS -------- 1. The left ventricular size is normal. 2. There is moderate concentric left ventricular hypertrophy. 3. Overall left ventricular systolic function is normal with, an EF between 55 - 60 %. 4. Normal LAP. Grade 1 Diastolic Dysfunction. 5. Aortic valve is trileaflet and is severely thickened. 6. There is moderate aortic stenosis present. 7. Peak/mean gradient across the Aortic Valve is 42.82mmHg / 26.72mmHg. 8. Mild mitral regurgitation is present. 9. Mild tricuspid regurgitation present. 10. There is no pericardial effusion. INDEPENDENT CONTRACTOR: Tanja Mcnally RDCS
[2021-06-10 17:27] LABS: Glucose,Whole Blood 115 mg/dL (75-99)
[2021-06-10 20:07] LABS: Glucose,Whole Blood 154 mg/dL (75-99)
[2021-06-11 08:06] LABS: Glucose,Whole Blood 102 mg/dL (75-99)
[2021-06-11] MEDS: ASPIRIN 81 MG PO SCH (08:11)
[2021-06-11] MEDS: PANTOPRAZOLE 40 MG TABLET PO SCH (08:11)
[2021-06-11] MEDS: METOPROLOL TARTRATE 25 MG TAB PO SCH (08:11)
[2021-06-11] MEDS: MULTIVITAMINS, THERA 1 EACH TAB PO SCH (08:11)
[2021-06-11 08:29] VITALS: BP 121/75; PULSE 66; RESP 18; TEMP 98.2
[2021-06-11 09:12] LABS: Chol/HDL Ratio 4.59; LDL Cholesterol,Calculated 92.6 mg/dL (0.0-131.0); VLDL Calculation 29.4 mg/dL (5.00-40.00)
[2021-06-11 12:15] LABS: Glucose,Whole Blood 102 mg/dL (75-99)
--- NOTE | 2021-06-11 12:52 | P.DS ---
Providers Date of admission: 06/09/21 20:30 Expected date of discharge: 06/11/21 Attending physician: Chava Bledsoe Consults: 06/09/21 20:32 Consult Physician Urgent Consulting Provider: Reese Ann Consult Reason/Comments: acute expressive aphasia - resolved, acute cephalgia Do you want consulting provider notified?: Yes 06/10/21 13:10 Consult Physician Routine Consulting Provider: Connor Rogel Consult Reason/Comments: TIA CVA Do you want consulting provider notified?: Yes Primary care physician: Yuan Shaw - Discharge Diagnosis(es) (1) CRISTIAN (acute kidney injury) Current Visit: Yes Status: Acute (2) Acute encephalopathy Current Visit: Yes Status: Acute (3) Cephalgia Current Visit: Yes Status: Acute (4) Expressive aphasia Current Visit: Yes Status: Acute Hospital Course: Evidence to suggest patient experienced TIA, no evidence for acute stroke Evidence to suggest patient had acute kidney injury will hold lisinopril at this time continue metoprolol for hypertension General: Obese otherwise well-nourished well-hydrated 71-year-old female HEENT: [PERRL. EOMI. No pharyngeal erythema or exudate.] Neck: [No adenopathy.] Cardiac: [Heart regular in rate and rhythm. No S3. No S4. No clicks, rubs. No murmur.] Lungs: [Clear to auscultation bilaterally.] Abdomen: [No mass. No organomegaly. Bowel sounds presnt and normoactive in all 4 quadrants.] Extremes: [No edema no cyanosis no claudication normal pulses] : Normal female genitalia Patient is currently neurologically intact no lateralizing defects No seizures no weaknesses DTRs 2+ over 4 in all 4 extremes grade 5 out of 5 strength, pinprick and fine sensory intact normal finger-nose normal heel to kowalski downgoing plantars bilaterally Assessment: TIA versus CVA We'll discharge patient home with follow-up in the next 2-3 days with either myself or Dr. Shaw Patient Condition at Discharge: Stable Plan - Discharge Summary Discharge Rx Participant: No New Discharge Prescriptions: No Action Omeprazole [PriLOSEC] 20 mg PO AC-BRKFST Metoprolol Tartrate [Lopressor] 25 mg PO BID metFORMIN HCL [Glucophage] 500 mg PO BID lisinopriL [Zestril] 10 mg PO DAILY Atorvastatin [Lipitor] 40 mg PO HS Ubidecarenone [Co Q-10] 200 mg PO DAILY Multivit with Calcium,Iron,Min [Women's Multivitamin] 1 tab PO DAILY Aspirin [Adult Low Dose Aspirin EC] 81 mg PO DAILY Ibuprofen [Motrin] 800 mg PO Q8H PRN PRN Reason: Pain Or Fever > 100.5 Acetaminophen Tab [Tylenol Tab] 500 mg PO Q6H PRN PRN Reason: Pain Or Fever > 100.5 Discharge Medication List Metoprolol Tartrate [Lopressor] 25 mg PO BID 07/29/15 [History] Omeprazole [PriLOSEC] 20 mg PO AC-BRKFST 07/29/15 [History] metFORMIN HCL [Glucophage] 500 mg PO BID 07/29/15 [History] Aspirin [Adult Low Dose Aspirin EC] 81 mg PO DAILY 07/25/20 [History] Atorvastatin [Lipitor] 40 mg PO HS 07/25/20 [History] Multivit with Calcium,Iron,Min [Women's Multivitamin] 1 tab PO DAILY 07/25/20 [History] Ubidecarenone [Co Q-10] 200 mg PO DAILY 07/25/20 [History] Acetaminophen Tab [Tylenol Tab] 500 mg PO Q6H PRN 06/09/21 [History] Ibuprofen [Motrin] 800 mg PO Q8H PRN 06/09/21 [History] Follow up Appointment(s)/Referral(s): Yuan Shaw MD [Primary Care Provider] - 1-2 days
--- NOTE | 2021-06-11 15:01 | P.CRDCN ---
History of Present Illness Consult date: 06/11/21 Consult reason: other (TIA) History of present illness: History of present illness: This is a 71-year-old female patient of Dr. Rogel with past medical history of cardiac stent 2 in 2010 in the setting of CA, repeat heart catheterization in 2019 with no significant obstructive disease, hypertension, hyperlipidemia, diabetes mellitus type 2, tobacco use and dependence. Patient last saw Dr. Rogel in May and at that time her blood pressure was elevated for which lisinopril was increased to 10 mg. Patient complains of an episode yesterday where she was feeling generalized weakness and then developed expressive aphasia and a facial droop and slurring of her speech. She states her gait was unsteady and she was wobbly on her feet. She also had significant headache which is been resolved. Patient has experienced dizziness which she associated with headache. She initially thought this was a migraine headache but friend told her to come into the hospital. She denied having any chest pain, no shortness of breath and no palpitations. Her symptoms have been completely resolved. Initial blood pressure 135/79 - 143/118. EKG was a sinus rhythm with no acute ST changes. athletic monitor has been sinus rhythm with PVCs. Initial BUN 36 and creatinine 1.72 with repeat of 27 and 1.04. Triglycerides 147, cholesterol 156, LDL 92, HDL 34. Troponin negative. Coronavirus PCR not detected. Echocardiogram reveals EF of 55-60% with moderate aortic stenosis, mild mitral regurgitation, mild tricuspid regurgitation. CTA of the head and neck showed no hemodynamically significant stenosis or aneurysm. Chest x-ray subsegmental atelectasis in the left midlung, large hiatal hernia. MRI of the brain revealed cerebral atrophy could relate to microvascular ischemia or demyelinating disease. Review Of Systems: At the time of my evaluation: Constitutional: No fever, no chills. No weakness, fatigue or lethargy. EENT: No headache. No dizziness. Lungs: No shortness of breath, cough, no sputum production. No wheezing. Cardiovascular: No chest pain, no lower extremity edema. No palpitations. No paroxysmal nocturnal dyspnea. No orthopnea. No lightheadedness or dizziness. No syncopal episodes. Abdominal: No abdominal pain. No nausea, vomiting. No diarrhea. No constipation. No bloody or tarry stools.. No loss of appetite. Genitourinary: No dysuria.. No urinary retention. Musculoskeletal: No myalgias. No muscle weakness, no gait dysfunction, no frequent falls. No back pain. No neck pain. Integumentary: No wounds, no lesions. No rash or pruritus. No unusual bruising. Neurologic: No aphasia. No facial droop. No change in mentation. No head injury. No headache. No paralysis. No paresthesia. Psychiatric: No depression. No anxiety. Endocrine: No abnormal blood sugars. Physical examination: Gen: This is a a 71-year-old female. Patient is resting in bed and appears to be comfortable and in no acute distress. VS: Afebrile, heart rate 66, blood pressure 121/75, pulse ox 99% on room air HEENT: Head is atraumatic, normocephalic. Pupils equal, round. Sclerae is anicteric. NECK: Supple. No JVD. No lymphadenopathy. No thyromegaly. LUNGS: Clear to auscultation. No wheezes or rhonchi. No intercostal retractions. HEART: Regular rate and rhythm. Systolic murmur. ABDOMEN: Soft. Bowel sounds are present. No masses. No tenderness. EXTREMITIES: No pedal edema. No calf tenderness. NEUROLOGICAL: Patient is awake, alert and oriented x3. Cranial nerves 2 through 12 are grossly intact. Assessment: TIA Moderate aortic stenosis Coronary artery disease Hypertension Hyperlipidemia Diabetes mellitus type 2 Plan: Continue current cardiac medications Follow-up with Dr. Rogel in one week Event monitor recommended prior to discharge Further recommendations to follow based upon clinical course Thank you kindly for this consultation. Nurse practitioner note has been reviewed, I agree with documented findings and plan of care. Patient was seen and examined. Past Medical History Past Medical History: Diabetes Mellitus, Hyperlipidemia, Hypertension, Myocardial Infarction (CA) Last Myocardial Infarction Date:: 2010 History of Any Multi-Drug Resistant Organisms: None Reported Past Surgical History: Heart Catheterization With Stent, Tonsillectomy Past Anesthesia/Blood Transfusion Reactions: Motion Sickness Date of Last Stent Placement:: 2010 Past Psychological History: No Psychological Hx Reported Smoking Status: Current every day smoker Past Alcohol Use History: None Reported Past Drug Use History: None Reported - Past Family History Mother Family Medical History: Cancer Additional Family Medical History / Comment(s): LIVER Sister(s) Family Medical History: Cancer Additional Family Medical History / Comment(s): CERVICAL CANCER Medications and Allergies Home Medications Medication Instructions Recorded Confirmed Type Metoprolol Tartrate [Lopressor] 25 mg PO BID 07/29/15 06/09/21 History Omeprazole [PriLOSEC] 20 mg PO AC-BRKFST 07/29/15 06/09/21 History metFORMIN HCL [Glucophage] 500 mg PO BID 07/29/15 06/09/21 History Aspirin [Adult Low Dose Aspirin EC] 81 mg PO DAILY 07/25/20 06/09/21 History Atorvastatin [Lipitor] 40 mg PO HS 07/25/20 06/09/21 History Multivit with Calcium,Iron,Min 1 tab PO DAILY 07/25/20 06/09/21 History [Women's Multivitamin] Ubidecarenone [Co Q-10] 200 mg PO DAILY 07/25/20 06/09/21 History Acetaminophen Tab [Tylenol Tab] 500 mg PO Q6H PRN 06/09/21 06/09/21 History Ibuprofen [Motrin] 800 mg PO Q8H PRN 06/09/21 06/09/21 History Allergies Allergy/AdvReac Type Severity Reaction Status Date / Time No Known Allergies Allergy Verified 06/09/21 20:55 Physical Exam Vitals: Vital Signs Temp Pulse Pulse Resp BP Pulse Ox 06/11/21 07:00 98.2 F 66 18 121/75 99 06/11/21 02:07 98.3 F 74 16 120/72 97 06/10/21 21:08 70 133/97 06/10/21 19:45 18 06/10/21 19:12 98.2 F 72 18 122/79 98 06/10/21 15:00 98.3 F 76 16 121/81 94 L Intake and Output 06/10/21 06/11/21 06/11/21 22:59 06:59 14:59 Intake Total 118 0 Balance 118 0 Intake: Oral 118 0 Other: Voiding Method Toilet # Voids 2 1 Results 06/10/21 07:31 06/10/21 07:31 Cardiac Enzymes 06/10/21 Range/Units 07:31 AST 17 (14-36) U/L Lipids 06/09/21 Range/Units 16:57 Triglycerides 147.0 (0.0-149.0) mg/dL Cholesterol 156 (0-200) mg/dL HDL Cholesterol 34.0 L (40.0-60.0) mg/dL Cholesterol/HDL Ratio 4.59 CBC 06/10/21 Range/Units 07:31 WBC 5.51 (4.50-10.00) X 10*3/uL RBC 4.93 (4.10-5.20) X 10*6/uL Hgb 14.3 (12.0-15.0) g/dL Hct 43.5 (37.2-46.3) % Plt Count 198 (140-440) X 10*3/uL Comprehensive Metabolic Panel 06/10/21 06/10/21 06/10/21 Range/Units 07:31 07:31 21:37 Sodium 140 136 L (135-145) mmol/L Potassium 4.1 4.1 (3.5-5.5) mmol/L Chloride 110 H 110 H (96-109) mmol/L Carbon Dioxide 20.6 L 18 L (21.6-31.8) mmol/L BUN 28.0 H 27 H (9.0-27.0) mg/dL Creatinine 1.1 1.04 (0.6-1.5) mg/dL Glucose 119 H 126 H (70-110) mg/dL Calcium 9.6 9.7 10.1 (8.7-10.3) mg/dL AST 17 (14-36) U/L ALT 9 (4-34) U/L Alkaline Phosphatase 61 (38-126) U/L Total Protein 6.7 (6.3-8.2) g/dL Albumin 3.7 (3.5-5.0) g/dL Current Medications Generic Name Dose Route Start Last Admin Trade Name Freq PRN Reason Stop Dose Admin Acetaminophen 500 mg 06/10/21 00:02 Acetaminophen Tab 500 Mg Tab PO Q6H PRN Pain or Fever > 100.5 Aspirin 81 mg 06/10/21 09:00 06/11/21 08:11 Aspirin 81 Mg PO 81 mg DAILY VICKI Administration Atorvastatin Calcium 40 mg 06/10/21 00:15 06/10/21 21:10 Atorvastatin 40 Mg Tab PO 40 mg HS VICKI Administration Metoprolol Tartrate 25 mg 06/10/21 00:15 06/11/21 08:11 Metoprolol Tartrate 25 Mg Tab PO 25 mg BID VICKI Administration Multivitamins 1 each 06/10/21 09:00 06/11/21 08:11 Multivitamins, Thera 1 Each Tab PO 1 each DAILY VICKI Administration Naloxone HCl 0.2 mg 06/09/21 20:30 Naloxone 0.4 Mg/Ml 1 Ml Vial IV Q2M PRN Opioid Reversal Pantoprazole Sodium 40 mg 06/10/21 07:30 06/11/21 08:11 Pantoprazole 40 Mg Tablet PO 40 mg AC-BRKFST VICKI Administration Intake and Output 06/10/21 06/11/21 06/11/21 22:59 06:59 14:59 Intake Total 118 0 Balance 118 0 Intake: Oral 118 0 Other: Voiding Method Toilet # Voids 2 1 06/10/21 07:31 06/10/21 07:31
--- NOTE | 2021-06-11 20:28 | P.PN ---
Subjective Progress Note Date: 06/11/21 This is a tele-neurology follow-up performed today on 06/11/2021. Patient states she is feeling perfectly fine. Headache is gone. She is awaiting event monitor. No neurological symptoms. Objective - Vital Signs Vital signs: Vital Signs Temp 98.2 F 06/11/21 07:00 Pulse 66 06/11/21 07:00 Resp 18 06/11/21 07:00 BP 121/75 06/11/21 07:00 Pulse Ox 99 06/11/21 07:00 Intake & Output 06/11/21 06/11/21 06/12/21 06:59 18:59 06:59 Intake Total 0 Balance 0 Intake: Oral 0 Other: Voiding Method Toilet # Voids 1 - Exam Patient is alert and awake in no distress. Speech and language functions are normal. - Labs CBC & Chem 7: 06/10/21 07:31 06/10/21 07:31 Labs: Abnormal Lab Results - Last 24 Hours (Table) 06/09/21 06/11/21 06/11/21 Range/Units 16:57 08:05 12:14 POC Glucose (mg/dL) 102 H 102 H (75-99) mg/dL HDL Cholesterol 34.0 L (40.0-60.0) mg/dL Assessment and Plan Assessment: * Possible TIA, rule out CVA. Patient has presented with unsteadiness, slurring and cephalgia, which occurred few days after her dental procedure. Patient has stopped taking aspirin for 5 days prior to the procedure. Her cephalgia and slurring have resolved. Neurological examination is nonfocal. * Hypertension * Diabetes * Chronic tobacco use * Obesity * Hypercalcemia Plan: * MRI of brain revealed cerebral atrophy. Diffuse white matter changes around the ventricles are nonspecific and could relate to macrovascular ischemia or demyelinating disease. There is some involvement also of the berkley. No acute process. * 2-D echo revealed normal left-ventricular size. Moderate concentric LVH. EF is between 55-60%. Aortic valve is trileaflet and severely thickened. Moderate aortic stenosis present. * CTA of head and neck showed no significant stenosis. * Strongly recommend complete tobacco cessation. * Continue aspirin 81 mg daily. Continue Lipitor 40 mg. * Hemoglobin A1c 5.8 * Lipid panel with cholesterol 156, LDL 92, HDL 34 and triglycerides 147. * Continue telemetry monitoring. * Repeat calcium level is normal 10.1. * Neurologically clear for discharge.
== END 2021-06-11 14:05 | disposition home or self-care (01) ==
LOC: EC 15:37 → 6NMEDSUR 20:30
PROVIDERS: ADMIT Family Medicine; ATTEND Family Medicine
DX: R47.01 Aphasia (principal); N17.9 Acute kidney failure, unspecified; Z20.822 Contact with and (suspected) exposure to COVID-19; G93.40 Encephalopathy, unspecified; R51.9 Headache, unspecified; E11.9 Type 2 diabetes mellitus without complications; E66.9 Obesity, unspecified; E78.5 Hyperlipidemia, unspecified; E83.52 Hypercalcemia; F17.200 Nicotine dependence, unspecified, uncomplicated; I10 Essential (primary) hypertension; I25.10 Atherosclerotic heart disease of native coronary artery without angina pectoris; I25.2 Old myocardial infarction; I35.0 Nonrheumatic aortic (valve) stenosis; I49.3 Ventricular premature depolarization; K44.9 Diaphragmatic hernia without obstruction or gangrene; Z79.82 Long term (current) use of aspirin; Z79.84 Long term (current) use of oral hypoglycemic drugs; Z79.899 Other long term (current) drug therapy; Z95.5 Presence of coronary angioplasty implant and graft
CPT/HCPCS: 96361 ×3; 96365; 96375; 99285; 36415; 93005; 93306; 80061; 80053 ×2; 80048; 82310; 84484; 85025 ×2; 85610; 81003; 83036; 87635; 71046; 70496; 70450; 70498; 70551; G0378 ×3; J1200; J1100; J2765; J3475; J1885; Q9967

== ENCOUNTER → 2021-12-29 | Outpatient (CLI) | payer MEDICARE ==
--- NOTE | 2022-01-03 10:01 | MM ---
Reason for exam: screening (asymptomatic). Last mammogram was performed 1 year and 1 month ago. History: Patient is postmenopausal and is nulliparous. Took hormonal contraceptives for 12 years. Took estrogen for 5 years. Physical Findings: A clinical breast exam by your physician is recommended on an annual basis and results should be correlated with mammographic findings. MG Screening Mammo w CAD Bilateral CC and MLO view(s) were taken. Prior study comparison: November 21, 2020, bilateral MG 3d screening mammo w/cad. November 09, 2019, bilateral MG screening mammo w CAD. The breast tissue is almost entirely fat. No significant changes when compared with prior studies. ASSESSMENT: Benign, BI-RAD 2 RECOMMENDATION: Routine screening mammogram of both breasts in 1 year.
== END | disposition home or self-care (01) ==
LOC: RADMAMWWP 15:51
PROVIDERS: ATTEND Family Medicine
DX: Z12.31 Encounter for screening mammogram for malignant neoplasm of breast (principal)
CPT/HCPCS: 77067

== ENCOUNTER → 2023-01-07 | Outpatient (CLI) | payer MEDICARE ==
--- NOTE | 2023-01-08 19:02 | MM ---
Reason for Exam: Screening (asymptomatic). Last screening mammogram was performed 12 month(s) ago. Patient History: Menarche at age 15. Patient has no children. Postmenopausal. Patient used Estrogen for 5 years. Patient used Hormonal Contraceptives for 12 years. Risk Values: Emely 5 year model risk: 1.8%. NCI Lifetime model risk: 4.9%. Prior Study Comparison: 11/09/2019 Bilateral Screening Mammogram, [facility]. 11/21/2020 Bilateral Screening Mammogram, [facility]. 12/29/2021 Bilateral Screening Mammogram, [facility]. Tissue Density: There are scattered fibroglandular densities. Findings: Analyzed By CAD. There is no suspicious group of microcalcifications or new suspicious mass in either breast. Overall Assessment: Negative, BI-RAD 1 Management: Screening Mammogram of both breasts in 1 year. 1. Patient should continue monthly self breast exams. 2. A clinical breast exam by your physician is recommended on an annual basis. 3. This exam should not preclude additional follow-up of suspicious palpable abnormalities. Electronically signed and approved by: Anna Hood M.D. Radiologist
== END | disposition home or self-care (01) ==
LOC: RADMAMWWP 14:37
PROVIDERS: ATTEND Family Medicine
DX: Z12.31 Encounter for screening mammogram for malignant neoplasm of breast (principal); Z78.0 Asymptomatic menopausal state
CPT/HCPCS: 77067

== ENCOUNTER → 2023-10-11 | Outpatient (CLI) | payer MEDICARE ==
--- NOTE | 2023-10-11 18:30 | BD ---
EXAMINATION TYPE: Axial Bone Density DATE OF EXAM: 10/11/2023 CLINICAL HISTORY: 73 years old Female. ICD-10 CODE: Z78.0 ASYMPTOMATIC MENOPAUSAL STATE Height: 63.7 in Weight: 199 lbs FRAX RISK QUESTIONS: Current Tobacco Use: yes EXAM MEASUREMENTS: Bone mineral densitometry was performed using the [employer] System. Bone mineral density as measured about the Lumbar spine is: ----- L1-L4(G/cm2): 1.349 T Score Values are as follows: ----- L1: -0.8 ----- L2: 1.2 ----- L3: 2.0 ----- L4: 2.5 ----- L1-L4: 1.4 Z Score Values are as follows: ----- L1: 0.0 ----- L2: 2.0 ----- L3: 2.9 ----- L4: 3.4 ----- L1-L4: 2.3 Bone mineral density has: Increased 2.0% since study of: 11/09/2019 Bone mineral density about the R hip (g/cm2): 0.927 Bone mineral density about the L hip (g/cm2): 0.885 T Score values are as follows: -----R Neck: -1.0 -----L Neck: -1.2 -----R Total: -0.6 -----L Total: -1.0 Z Score values are as follows: -----R Neck: 0.2 -----L Neck: 0.0 -----R Total: 0.3 -----L Total: 0.0 Bone mineral density has: Decreased -5.0% since study of: 11/09/2019 FRAX%s: The graph provided illustrates a 9.4% chance for a major osteoporotic fx and a 2.1% chance fo r the hips probability for fx in 10 years time. IMPRESSION: Osteopenia (T Score between -2.5 and -1). There is slightly increased risk of fracture and the patient may be considered for treatment. Re-Screen 2-5 years. NOTE: T-SCORE=SD OF THE YOUNG ADULT MEAN.
== END | disposition home or self-care (01) ==
LOC: RADBDWWP 15:50
PROVIDERS: ATTEND Family Medicine
DX: M85.89 Other specified disorders of bone density and structure, multiple sites (principal); Z78.0 Asymptomatic menopausal state
CPT/HCPCS: 77080

== ENCOUNTER → 2024-01-21 | Outpatient (CLI) | payer MEDICARE ==
--- NOTE | 2024-01-28 13:47 | MM ---
Reason for Exam: Screening (asymptomatic). Last mammogram was performed 1 year(s) and 1 month(s) ago. Patient History: Menarche at age 15. Patient has no children. Postmenopausal. Patient used Estrogen for 5 years. Patient used Hormonal Contraceptives for 12 years. Risk Values: Emely 5 year model risk: 1.8%. NCI Lifetime model risk: 4.6%. Prior Study Comparison: 11/21/2020 Bilateral Screening Mammogram, [facility]. 12/29/2021 Bilateral Screening Mammogram, [facility]. 01/07/2023 Bilateral MG screening mammo w CAD, [facility]. Tissue Density: The breasts are almost entirely fatty. Findings: Analyzed By CAD. Unchanged asymmetric density superior left MLO view. There is no suspicious group of microcalcifications or new suspicious mass in either breast. The patient was called back for technical repeat of the left MLO view due to initial cut off along the inferior aspect. Overall Assessment: Negative, BI-RAD 1 Management: Screening Mammogram of both breasts in 1 year. . Patient should continue monthly self-breast exams. A clinical breast exam by your physician is recommended on an annual basis. This exam should not preclude additional follow-up of suspicious palpable abnormalities. Note on Emely scores and lifetime risk: 1. A Emely score greater than 3% is considered moderate risk. If this is the case, consider specialist referral to assess eligibility for a risk reducing agent. 2. If overall lifetime risk for the development of breast cancer is 20% or higher, the patient may qualify for future screening with alternating mammogram and breast MRI. Electronically signed and approved by: Anna Hood M.D. Radiologist
== END | disposition home or self-care (01) ==
LOC: RADMAMWWP 13:51
PROVIDERS: ATTEND Family Medicine
DX: Z12.31 Encounter for screening mammogram for malignant neoplasm of breast (principal); Z78.0 Asymptomatic menopausal state
CPT/HCPCS: 77067

== ENCOUNTER → 2024-01-28 | Outpatient (CLI) | payer MEDICARE | END | disposition home or self-care (01) | LOC: RADMAMWWP 13:15 | PROVIDERS: ATTEND Family Medicine | DX: Z53.9 Procedure and treatment not carried out, unspecified reason (principal) ==

== ENCOUNTER → 2025-03-09 | Outpatient (CLI) | payer MEDICARE ==
--- NOTE | 2025-03-09 13:49 | MM ---
Reason for Exam: Screening (asymptomatic). Last mammogram was performed 1 year(s) and 1 month(s) ago. Patient History: Menarche at age 15. Patient has no children. Postmenopausal. Patient used Estrogen for 5 years. Patient used Hormonal Contraceptives for 12 years. Risk Values: Emely 5 year model risk: 1.8%. NCI Lifetime model risk: 4.4%. Prior Study Comparison: 09/27/2017 Bilateral Screening Mammogram, [facility]. 10/07/2018 Bilateral Screening Mammogram, [facility]. 11/09/2019 Bilateral Screening Mammogram, [facility]. 11/21/2020 Bilateral Screening Mammogram, [facility]. 12/29/2021 Bilateral Screening Mammogram, [facility]. 01/07/2023 Bilateral MG screening mammo w CAD, [facility]. 01/21/2024 Bilateral MG screening mammo w CAD, [facility]. Tissue Density: There are scattered areas of fibroglandular density. Findings: Analyzed By CAD. Right breast: There is no suspicious group of microcalcifications or new suspicious mass. Left breast: There is no suspicious group of microcalcifications or new suspicious mass. Overall Assessment: Negative, BI-RAD 1 Management: Screening Mammogram of both breasts in [address] [facility] will attempt to contact patient to return for supplemental views and ultrasound if indicated. Patient should continue monthly self-breast exams. A clinical breast exam by your physician is recommended on an annual basis. This exam should not preclude additional follow-up of suspicious palpable abnormalities. Note on Emely scores and lifetime risk: 1. A Emely score greater than 3% is considered moderate risk. If this is the case, consider specialist referral to assess eligibility for a risk reducing agent. 2. If overall lifetime risk for the development of breast cancer is 20% or higher, the patient may qualify for future screening with alternating mammogram and breast MRI. [facility], , 03/09/2025 1:46 PM. Electronically signed and approved by: Abelardo Henry DO
== END | disposition home or self-care (01) ==
LOC: RADMAMWWP 13:02
PROVIDERS: ATTEND Family Medicine
DX: Z12.31 Encounter for screening mammogram for malignant neoplasm of breast (principal); R92.323 Mammographic fibroglandular density, bilateral breasts; Z78.0 Asymptomatic menopausal state; Z92.0 Personal history of contraception
CPT/HCPCS: 77067